=== PATIENT | female | born 1940 | race Two or more races ===

== ENCOUNTER 2019-08-26 10:49 | Inpatient (IN) | payer MEDICARE ==
[~2019-08-26] VITALS: Ht 160 cm; Wt 61.7 kg
--- NOTE | 2019-08-26 11:20 | NUR ---
GPS VOLUNTARY 213
--- NOTE | 2019-08-26 11:30 | NUR ---
WRAPPER HANDS SPRAYER NOTE- PT ADMITTED VOLUNTARY STATUS FOR DEPRESSION AND SUICIDAL THOUGHTS. ON FACE TO FACE ASSESSMENT- V/S- B/P- 145/85, HR-90, RR- 18, TEMP- 98.9, SATURATION 99%RA. PT IS 5' 3" TALL AND 136 POUNDS. SHE IS ALLERGIC TO BACITRACIN, IS A FULL CODE AND HAS PMHX OF DM AND HYPERTENSION. PT HAS BEEN TREATED FOR DEPRESSION FOR MANY YEARS. CURRENT MEDICATIONS ARE FOLLOWS- AMLODIPINE, SIMVASTATIN, CYMBALTA AND METFORMIN. PT ADMITS TO SUICIDAL THOUGHTS IN PAST BUT NO PLAN. STATES SHE HAS NO AUDITORY OR VISUAL HALLUCINATIONS. DENIES SI AND HI. ID WRISTBAND PLACED ON PATIENT, ORIENTED TO UNIT, BELONGINGS PLACED IN LOCKED PATIENT LOCKER. VALUABLES FORM SIGNED. MRSA SWAB DONE IN EMERGENCY ROOM. SKIN INTACT ON ADMISSION, PT HANDBOOK REVIEWED W PATIENT AND SHE VERBALIZED UNDERSTANDING. ACCU-CHECK DONE ON ADMIT. MD NOTIFIED OF ADMIT, ORDERS WRITTEN . FOLLOW PLAN OF CARE, MONITOR PATIENT FOR SAFETY AND ENCOURAGE ADLS AND INTERACTION.
[2019-08-26] MEDS ORDERED: DULO30CA52 PO (11:33)
[2019-08-26] MEDS ORDERED: AMLO2.5T4 PO (11:33)
[2019-08-26] MEDS ORDERED: METF-440 PO (11:33)
[2019-08-26] MEDS ORDERED: SIMV-46 PO (11:33)
[2019-08-26] MEDS ORDERED: MAG HYDROX/AL HYDROX/SIMETH 30 ML UDC PO PRN (12:30)
[2019-08-26] MEDS ORDERED: BLOOD SUGAR DIAGNOSTIC 1 EACH STRIP IN ONE (12:30)
[2019-08-26] MEDS ORDERED: MAGNESIUM HYDROXIDE 30 ML UDC PO PRN (12:30)
[2019-08-26] MEDS ORDERED: LORAZEPAM 0.5 MG TABLET PO PRN ×2 (12:30)
[2019-08-26 16:00] VITALS: BP 119/55
[2019-08-26] MEDS: ACETAMINOPHEN 325 MG TABLET PO PRN (18:30)
--- NOTE | 2019-08-26 18:36 | NUR ---
RN NOTE- PT HAS NECK PAIN. TYLENOL 650 MG GIVEN.
[2019-08-26 20:40] VITALS: BP 122/63
[2019-08-26] MEDS: SIMVASTATIN 20 MG TABLET PO SCH (21:42)
[2019-08-27 08:00] VITALS: BP 134/70
[2019-08-27 08:14] LABS: ALBUMIN 3.6 g/dL (3.4-5.0); BILIRUBIN,TOTAL 0.3 mg/dL (0.2-1.0); CREATININE 1.2 mg/dL (0.6-1.3); POTASSIUM 4.6 mmol/L (3.5-5.1); TOTAL PROTEIN, SERUM 7.6 g/dL (6.4-8.2)
[2019-08-27 08:36] LABS: CHOLESTEROL 166 mg/dL (<200); HDL CHOLESTEROL 80 mg/dL (40-60); LDL 65 mg/dL (0-99); TRIGLYCERIDES 128 mg/dL (30-150)
[2019-08-27] MEDS: METFORMIN 500 MG TABLET PO SCH (09:14)
[2019-08-27] MEDS: AMLODIPINE BESYLATE 2.5 MG TABLET PO SCH (09:14)
[2019-08-27] MEDS: VENLAFAXINE XR 75 MG CAP.SR.24H PO SCH (10:17)
[2019-08-27] MEDS ORDERED: LORAZEPAM 0.5 MG TABLET PO PRN (12:30)
[2019-08-27] MEDS: ACETAMINOPHEN 325 MG TABLET PO PRN (14:53)
--- NOTE | 2019-08-27 14:56 | NUR ---
RN NOTE- PT C/O HEADACHE. TYLENOL 650 MG GIVEN.
[2019-08-27 16:00] VITALS: BP 119/62
[2019-08-27 20:10] VITALS: BP 140/77
[2019-08-27] MEDS: SIMVASTATIN 20 MG TABLET PO SCH (21:22)
[2019-08-27] MEDS: ZOLPIDEM TARTRATE 10 MG TABLET PO PRN (21:22)
--- NOTE | 2019-08-27 21:27 | NUR ---
PRN AMBIEN GIVE PATIENT REQUESTED TO GET SLEEPING PILL, PRN AMBIEN 5MG PO GIVEN PER PT. REQUEST. WILL CONTINUE TO MONITOR.
[2019-08-28 08:00] VITALS: BP 128/63
[2019-08-28] MEDS: AMLODIPINE BESYLATE 2.5 MG TABLET PO SCH (08:27)
[2019-08-28] MEDS: VENLAFAXINE XR 75 MG CAP.SR.24H PO SCH (08:27)
[2019-08-28] MEDS: METFORMIN 500 MG TABLET PO SCH (08:27)
--- NOTE | 2019-08-28 09:09 | NUR ---
FAMILY CONTACT: SW attempted contact pts daughter Emma [phone] but was unable to leave a voicemail due to a busy dial tone.
--- NOTE | 2019-08-28 09:32 | NUR ---
INITIAL DISCHARGE plan: Per pt she wishes to return home [address] [place] [address] and states her daughter Emma [phone] will pick her up and transport her home once stable for discharge. SW will help form a safe and proper discharge in collaboration with .
[2019-08-28 16:00] VITALS: BP 123/74
[2019-08-28] MEDS: ACETAMINOPHEN 325 MG TABLET PO PRN (20:05)
[2019-08-28 20:06] VITALS: BP 131/75
--- NOTE | 2019-08-28 20:06 | NUR ---
subsystems engineer notes pt awake and alert reading some newspaper , pleasant , complaining of headache, tylenol po given as ordered. no N/v noted .
[2019-08-28] MEDS: SIMVASTATIN 20 MG TABLET PO SCH (21:48)
[2019-08-28] MEDS: ZOLPIDEM TARTRATE 10 MG TABLET PO PRN (21:48)
--- NOTE | 2019-08-28 22:00 | NUR ---
AUTO MACHINIST NOTES ROUTINE MEDS GIVEN WELL HER SLEEP MEDICATION AMBIEN. SAFETY PRECAUTION APPLIED. BED ALARM SET FOR PT SAFETY.
--- NOTE | 2019-08-29 | NUR ---
TUBE REBUILDER NOTES PT ASLEEP , RESPIRATION EVEN AND NON-LABORED . NOT ANY ACUTE DISTRESS NOTED. KEPT HER WARM AND COMFORTABLE AT ALL TIMES. BED ALARM SET FOR SAFETY.
--- NOTE | 2019-08-29 06:20 | NUR ---
SAFE DEPOSIT CLERK CLOSING NOTES PT RESTING COMFORTABLY IN BED WITHOUT ANY DISTRESS NOTED. SHE'S CALMED AND FOLLOWED DIRECTION . COOPERATIVE , GUARDED . DENIES ANY SUICIDAL IDEATION. STABLE RUTH THE NIGHT AND SLEPT WELL. KEPT HER WARM AND COMFORTABLE AT ALL TIMES. WILL ENDORSE TO AM NURSE FOR CONTINUITY OF CARE.
[2019-08-29 08:00] VITALS: BP 124/70
[2019-08-29] MEDS: AMLODIPINE BESYLATE 2.5 MG TABLET PO SCH (08:11)
[2019-08-29] MEDS: VENLAFAXINE XR 75 MG CAP.SR.24H PO SCH (08:11)
[2019-08-29] MEDS: METFORMIN 500 MG TABLET PO SCH (08:11)
--- NOTE | 2019-08-29 14:34 | NUR ---
GROUP NOTE: SW encouraged pt to attend group on this present day discussing "discharge planning." Pt states that she wishes to return home. Pt states that she currently does not feel ready to be discharged and that she needs to be here for a few more days. Pts mood is euthymic with congruent affect and maintained appropriate eye contact.
[2019-08-29 16:00] VITALS: BP 120/74
[2019-08-29] MEDS: ACETAMINOPHEN 325 MG TABLET PO PRN (19:44)
--- NOTE | 2019-08-29 20:20 | NUR ---
RN OPENING NOTES RECEIVED ENDORSEMENT FROM SARIAH PHILLIPS. FOUND Pt RESTING IN BED. NO S/S OF ACUTE DISTRESS OR SOB NOTED. Pt IS MED COMPLIANT. SAFETY MEASURES IN PLACE. BED LOW, LOCKED, HOB ELEVATED, SIDE RAILS UP, BED ALARM ON. WILL CONTINUE TO MONITOR Pt's CONDITION AND SAFETY THROUGHOUT THE NIGHT.
[2019-08-29 20:21] VITALS: BP 138/69
[2019-08-29 20:30] VITALS: BP 138/69
[2019-08-29] MEDS: SIMVASTATIN 20 MG TABLET PO SCH (21:40)
[2019-08-29] MEDS: ZOLPIDEM TARTRATE 10 MG TABLET PO PRN (21:43)
--- NOTE | 2019-08-30 06:45 | NUR ---
RN CLOSING NOTES: NO SIGNIFICANT CHANGES IN Pt's CONDITION. Pt REMAINED STABLE PER BASELINE. NO S/S OF ACUTE DISTRESS OR SOB NOTED DURING THE NIGHT. ALL NEEDS MET AND ATTENDED TO. SAFETY MEASURES IN PLACE. BED, LOW, LOCKED, HOB ELEVATED, SIDE RAILS UP, & BED ALARM ON. Pt IS RESTING IN BED WITH UNLABORED RESPIRATIONS WITH EQUAL CHEST RISE AND FALL. WILL ENDORSE TO DAYSHIFT RN FOR Pt's RYLEY.
[2019-08-30 08:00] VITALS: BP 154/77
[2019-08-30] MEDS: VENLAFAXINE XR 75 MG CAP.SR.24H PO SCH (08:48)
[2019-08-30] MEDS: METFORMIN 500 MG TABLET PO SCH (08:48)
[2019-08-30] MEDS: AMLODIPINE BESYLATE 2.5 MG TABLET PO SCH (08:49)
[2019-08-30] MEDS: ACETAMINOPHEN 325 MG TABLET PO PRN ×2 (08:53→20:17)
[2019-08-30] MEDS: ARIPIPRAZOLE 5 MG TABLET PO SCH (13:12)
--- NOTE | 2019-08-30 14:19 | NUR ---
FAMILY CONTACT: LUCERO met and spoke with pts daughter mEma [phone] regarding aftercare referrals. LUCERO informed her that she will be providing pt with a referral to [facility] Address: [facility] [address], [place] [address] daughter agreed and stated that she has already established services for pt to attend a senior center once she returns home. Daughter also stated that she will be picking pt up and transporting home once stable for discharge.
[2019-08-30 16:00] VITALS: BP 138/78
--- NOTE | 2019-08-30 19:30 | NUR ---
GPS RN NOTE, RECEIVED PATIENT AWAKE AND IN BED, NO S/S OR COMPLAINTS OF PAIN AT THIS TIME. PATIENT IS DISPLAYING NO S/S OF APPARENT DISTRESS AT THIS TIME. PATIENT BREATHING IS UNLABORED WITH EQUAL RISE AND FALL OF THE CHEST. PATIENT IS ALERT AND ORIENTED X 2-3 ON ROOM AIR WITH A SPO2 95%. PATIENT IS MED COMPLIANT, ANXIOUS AT TIMES, SUSPICIOUS, PARANOID, AND COOPERATIVE. PATIENT DENIES SUICIDAL AND HOMICIDAL IDEATIONS AT THIS TIME. PATIENT ASSISTED WITH TURNING AND REPOSITIONING Q2HR AND PRN FOR COMFORT AND CIRCULATION. PATIENT HAS NO NEEDS AT THIS TIME. PATIENT EDUCATED ON THE USE OF THE CALL FERRELL. PATIENT BED SIDE RAILS UP X 2 FOR SAFETY. PATIENT BED IS LOCKED, LOW, WITH BED ALARM ON. WILL CONTINUE TO MONITOR THIS PATIENT Q15 MINUTES WITH THE HELP OF STAFF TO MAINTAIN SAFETY.
[2019-08-30 20:00] VITALS: BP 125/73
--- NOTE | 2019-08-30 20:18 | NUR ---
GPS RN NOTE, PATIENT HAS A COMPLAINT OF A HEAD ACHE AT 3 OUT 10 ON THE PAIN SCALE AND IS REQUESTING TYLENOL AT THIS TIME. PATIENT VITAL SIGNS ARE STABLE. GAVE TYLENOL 650 MG PO Q6HR PRN ORDERED. WILL REASSESS PAIN AND I WILL CONTINUE TO MONITOR THIS PATIENT.
[2019-08-30] MEDS: SIMVASTATIN 20 MG TABLET PO SCH (21:24)
[2019-08-30] MEDS: ZOLPIDEM TARTRATE 10 MG TABLET PO PRN (21:24)
--- NOTE | 2019-08-30 21:25 | NUR ---
GPS RN NOTE, PATIENT HAS A COMPLAINT OF NOT BEING ABLE TO SLEEP AND IS REQUESTING AMBIEN AT THIS TIME. PATIENT VITAL SIGNS ARE STABLE. GAVE AMBIEN 5 MG PO HS PRN ORDERED. WILL REASSESS FOR INSOMNIA AND I WILL CONTINUE TO MONITOR THIS PATIENT.
[2019-08-31 08:00] VITALS: BP 161/78
[2019-08-31] MEDS: VENLAFAXINE XR 75 MG CAP.SR.24H PO SCH (08:11)
[2019-08-31] MEDS: AMLODIPINE BESYLATE 2.5 MG TABLET PO SCH (08:11)
[2019-08-31] MEDS: METFORMIN 500 MG TABLET PO SCH (08:11)
[2019-08-31] MEDS: ARIPIPRAZOLE 5 MG TABLET PO SCH (08:11)
[2019-08-31 09:15] VITALS: BP 149/51
[2019-08-31] MEDS: ACETAMINOPHEN 325 MG TABLET PO PRN ×2 (12:08→21:09)
[2019-08-31 16:00] VITALS: BP 129/79
[2019-08-31 20:10] VITALS: BP 137/63
[2019-08-31] MEDS: ZOLPIDEM TARTRATE 10 MG TABLET PO PRN (21:09)
[2019-08-31] MEDS: SIMVASTATIN 20 MG TABLET PO SCH (21:09)
[2019-09-01 08:00] VITALS: BP 154/74
[2019-09-01] MEDS: VENLAFAXINE XR 75 MG CAP.SR.24H PO SCH (08:17)
[2019-09-01] MEDS: AMLODIPINE BESYLATE 2.5 MG TABLET PO SCH (08:17)
[2019-09-01] MEDS: METFORMIN 500 MG TABLET PO SCH (08:17)
[2019-09-01] MEDS: ARIPIPRAZOLE 5 MG TABLET PO SCH (08:17)
[2019-09-01] MEDS: ACETAMINOPHEN 325 MG TABLET PO PRN (19:33)
[2019-09-01 20:45] VITALS: BP 158/89
[2019-09-01] MEDS: SIMVASTATIN 20 MG TABLET PO SCH (22:04)
[2019-09-01] MEDS: ZOLPIDEM TARTRATE 10 MG TABLET PO PRN (22:05)
--- NOTE | 2019-09-02 06:37 | NUR ---
RN NOTES PT IN GOOD CONDITION, SLEEPING COMFORTABLY IN BED. NO S/S OF DISTRESS, RESPIRATION EVEN AND UNLABORED. SAFETY PRECAUTION CONTINUED, BED IN LOW POSITION, LOCKED AND SIDE RAILS UP X2. WILL CONTINUE TO MONITOR AND ENDORSE TO AM SHIFT
[2019-09-02 08:00] VITALS: BP 150/77
[2019-09-02] MEDS: AMLODIPINE BESYLATE 2.5 MG TABLET PO SCH (08:50)
[2019-09-02] MEDS: METFORMIN 500 MG TABLET PO SCH (08:50)
[2019-09-02] MEDS: VENLAFAXINE XR 75 MG CAP.SR.24H PO SCH (08:50)
[2019-09-02] MEDS: ARIPIPRAZOLE 5 MG TABLET PO SCH (08:50)
[2019-09-02] MEDS: LISINOPRIL (10MG) 10 MG TABLET PO SCH (11:06)
--- NOTE | 2019-09-02 15:22 | NUR ---
INDIVIDUAL MEETING: SW met with pt to discuss her discharge plan to a SNF. Pt stated that she does not wish to be discharged to a SNF and that she just mentioned that because she does not want to go to her daughters home. Pt states that her son has schizophrenia and lives with her and his mental illness has taken a toll on her depression as well. Pt states that she ruminates on the past and cannot move past her negative thoughts that stem from childhood. SW provided individual therapy and provided her with positive coping skills that may help her not be so focused on her negative thoughts. SW introduced journaling to pt and asked pt to write down her goals and things she wishes to do once she is discharged. Pt states she wants a dog and also to attend the senior center. She also states that she may be okay with staying at her daughters house a couple days per week. Pt no longer verbalizes suicidal ideation but she does verbalize that she continues to feel depressed but she also wishes to be discharged soon. SW will continue to monitor pts level of suicidality and will assist with appropriate discharge planning.
[2019-09-02 16:00] VITALS: BP 131/71
[2019-09-02 20:19] VITALS: BP 119/58
[2019-09-02] MEDS: ACETAMINOPHEN 325 MG TABLET PO PRN (20:53)
[2019-09-02] MEDS: SIMVASTATIN 20 MG TABLET PO SCH (21:00)
[2019-09-02] MEDS: ZOLPIDEM TARTRATE 10 MG TABLET PO PRN (21:40)
--- NOTE | 2019-09-02 21:45 | NUR ---
GPS RN NOTE: PATIENT REQUEST FOR SLEEPING MEDICATION, AMBIEN 5MG ORAL GIVEN PER MD ORDER. WILL CONTINUE TO MONITOR.
[2019-09-03 08:00] VITALS: BP 150/69
[2019-09-03] MEDS: ARIPIPRAZOLE 5 MG TABLET PO SCH (08:38)
[2019-09-03] MEDS: METFORMIN 500 MG TABLET PO SCH (08:38)
[2019-09-03] MEDS: VENLAFAXINE XR 37.5 MG CAP.SR.24H PO SCH (08:38)
[2019-09-03] MEDS: AMLODIPINE BESYLATE 2.5 MG TABLET PO SCH (08:38)
[2019-09-03] MEDS: LISINOPRIL (10MG) 10 MG TABLET PO SCH (08:39)
--- NOTE | 2019-09-03 10:10 | NUR ---
FAMILY CONTACT: SW attempted contact pts daughter Emma [phone] but was unable to leave a voicemail due to a busy dial tone.
--- NOTE | 2019-09-03 15:52 | NUR ---
GROUP NOTE: SW encouraged pt to participate in group therapy discussing "reality-testing" Pt states that she wishes to go home but will work with the doctor and leave when he feels she is stable for discharge. Pt states that she is feeling much better but still has episodes of feeling depressed. Pts states that she understands that she is "mentally ill" and cannot stop taking her antidepressants once discharged.
--- NOTE | 2019-09-03 15:56 | NUR ---
FAMILY CONTACT: SW attempted to contact pts daughter Emma [phone] and left a voicemail for callback.
[2019-09-03 16:00] VITALS: BP 147/69
[2019-09-03] MEDS: ACETAMINOPHEN 325 MG TABLET PO PRN (17:08)
[2019-09-03 20:20] VITALS: BP 105/63
[2019-09-03] MEDS: SIMVASTATIN 20 MG TABLET PO SCH (21:46)
[2019-09-03] MEDS: ZOLPIDEM TARTRATE 10 MG TABLET PO PRN (22:59)
[2019-09-04 08:00] VITALS: BP 102/66
--- NOTE | 2019-09-04 08:29 | NUR ---
FAMILY CONTACT: LUCERO contacted pts daughter Emma [phone] and informed her pt will be discharged 09/05/19. Daughter stated that she will be coming to visit pt on this present day and asked if she could take pt home today. LUCERO contacted MD and he gave discharge order for this present day.
[2019-09-04] MEDS: ACETAMINOPHEN 325 MG TABLET PO PRN (08:46)
[2019-09-04] MEDS: METFORMIN 500 MG TABLET PO SCH (08:46)
[2019-09-04] MEDS: VENLAFAXINE XR 37.5 MG CAP.SR.24H PO SCH (08:46)
--- NOTE | 2019-09-04 08:46 | NUR ---
FOLLOW UP: SW contacted Psychiatrist: Dr. Brooklynn Chapa Address: [address] [place] [address] [address] [address] and left a voicemail for callback to schedule a follow up appointment within 7 days.
[2019-09-04] MEDS: ARIPIPRAZOLE 5 MG TABLET PO SCH (08:47)
--- NOTE | 2019-09-04 08:48 | NUR ---
PRN TYLENOL GIVEN FOR HEADACHE
[2019-09-04 08:49] VITALS: BP 102/66
[2019-09-04] MEDS: LISINOPRIL (10MG) 10 MG TABLET PO SCH (08:49)
[2019-09-04] MEDS: AMLODIPINE BESYLATE 2.5 MG TABLET PO SCH (08:49)
--- NOTE | 2019-09-04 10:58 | NUR ---
DISCHARGE NOTE: Pt will be discharged at 1:00pm via private vehicle home [address] [facility] [place] [address] . 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 Pts mood is euthymic with congruent affect. Pt denied suicidal/homicidal ideation and also denied visual/auditory hallucinations. LUCERO contacted Psychiatrist: Dr. Brooklynn Chapa Address: [address] [place] [address] [address], [place] [address] and left a voicemail for callback to schedule a followup appointment. SW also advised pt to call psychiatrist to schedule and appointment. Pt will also follow up with Hub Inventory Specialist: Dr. Lisa Loaiza Address: [address] [place] [address] . The multidisciplinary exit care form was done, printed, signed, and given to the patient.
--- NOTE | 2019-09-04 12:36 | NUR ---
SHOWROOM SALES CONSULTANT NOTE: PATIENT IS A 78 YEAR OLD FEMALE DISCHARGED HOME TO [address] [facility] [place] [address] . PATIENT IS IN STABLE CONDITION. VSS. NO ACUTE DISTRESS NOTED. NO COMPLAINTS. COMPLIANT WITH MEDICATION MANAGEMENT. COOPERATIVE WITH PLAN OF CARE. PSYCHIATRIC TREATMENT PLANS MET. MEDICAL TREATMENT PLANS DEFERRED FOR CONTINUAL MONITORING. DENIES SI/HI VAH AT THE TIME OF DISCHARGE. SKIN INTACT. EDUCATED PATIENT ABOUT AFTERCARE WITH COPY PROVIDED. RETURNED PERSONAL BELONGINGS TO PATIENT. MEDICATIONS RECONCILED WITH DR REYES AND BRISEIDA ALONG WITH PSYCHIATRIC DISCHARGE ORDERS. DISCHARGE PAPERWORK SIGNED. FOR FOLLOW UP WITH Psychiatrist: Dr. Brooklynn Chapa Address: [address] [place] [address] [address] [address] AND Beater Room Supervisor: Dr. Lisa Loaiza Address: [address] [place] [address] IN 1 WEEK. PATIENT LEFT [facility] VIA PRIVATE CAR AT 1230 ACCOMPANIED BY DAUGHTER.
== END 2019-09-04 12:30 | disposition home or self-care (01) | DRG 885 ==
LOC: ER 10:53 → GPS 11:14
PROVIDERS: ADMIT Psychiatry & Neurology Psychiatry; ATTEND Internal Medicine
DX: F33.3 Major depressive disorder, recurrent, severe with psychotic symptoms (principal); F23 Brief psychotic disorder; R45.851 Suicidal ideations; F41.9 Anxiety disorder, unspecified; E78.00 Pure hypercholesterolemia, unspecified; I10 Essential (primary) hypertension; E11.9 Type 2 diabetes mellitus without complications; E78.5 Hyperlipidemia, unspecified
CPT/HCPCS: 36415; 80053-TC; 80061-TC; 82962-TC; 87081-TC